=== PATIENT | female | born 1990 | race Caucasian/White ===

== ENCOUNTER 2017-11-21 19:16 | Emergency (ER) | payer OTHER ==
[2017-11-21] MEDS ORDERED: metroNIDAZOLE TAB* 250 MG PO ONE (21:54)
[2017-11-21 22:35] VITALS: BP 128/96
--- NOTE | 2017-11-22 06:07 | ED ---
Maged Mcknight Nikita, scribed for Kirit Sandhu MD on 11/21/17 at 2143 . GI/ HPI - HPI Summary HPI Summary: This patient is a 27 year old F presenting to ED with a chief complaint of pelvic pain since 1 year ago and vaginal discharge with blood since 5 years ago. The CC is described as worsened tonight, shooting and throbbing, previously on one side but is now diffuse, and she can feel them on her clitoris. The discharge is intermittent and is described as with blood, yellow or white. The patient rates the pain 7/10 in severity. Symptoms aggravated by nothing. Symptoms alleviated by nothing (pt has taken Advil to no relief). Patient reports urinary symptoms, nausea, crawling sensations in her nose and R eye, inflammation and erythema of the vaginal area, vaginal and rectal itching. Patient denies vomiting. The pt is a virgin. 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 LMP was 11/01/17. - History of Current Complaint Chief Complaint: EDVaginalBleeding Time Seen by Provider: 11/21/17 21:27 Stated Complaint: PELVIC AND VAGINALPAIN/BLEEDING Hx Obtained From: Patient Onset/Duration: Started Days Ago, Still Present Timing: Constant, Lasting Days Severity: Moderate Current Severity: Moderate Pain Intensity: 7 Location of Pain: Other - pelvic Pain Characteristics: Itching, Other: - irritated, shooting, and throbbing Associated Signs and Symptoms: Positive: Other: - discharge is intermittent and is described as with blood, yellow or white; Patient reports urinary symptoms, nausea, crawling sensations in her nose and R eye, inflammation and erythema of the vaginal area, vaginal and rectal itching. Patient denies vomiting. Additional Signs & Symptoms: Positive: Other: - discharge is intermittent and is described as with blood, yellow or white; Patient reports urinary symptoms, nausea, crawling sensations in her nose and R eye, inflammation and erythema of the vaginal area, vaginal and rectal itching. Patient denies vomiting. Aggravating Factor(s): Nothing Alleviating Factor(s): Nothing - pt has taken advil to no relief - Allergy/Home Medications Allergies/Adverse Reactions: Allergies Allergy/AdvReac Type Severity Reaction Status Date / Time No Known Allergies Allergy Verified 11/21/17 21:27 PMH/Surg Hx/FS Hx/Imm Hx Endocrine/Hematology History: Reports: Other Endocrine/Hematological Disorders - pawan's disease GI History: Reports: Other GI Disorders - pinworms in her stool History: Reports: Other Problems/Disorders - chronic pelvic pain and itching - Immunization History Date of Tetanus Vaccine: utd Date of Influenza Vaccine: utd Infectious Disease History: No Infectious Disease History: Denies: Traveled Outside the [place] in Last 30 Days - Family History Known Family History: Positive: Other Family History: ovarian cysts - Social History Alcohol Use: Rare Substance Use Type: Reports: None Smoking Status (MU): Never Smoked Tobacco Review of Systems Positive: Other - crawling sensations in her nose and R eye Positive: Nausea, Other - rectal itching. Negative: Vomiting Positive: discharge - with blood, yellow, or white discharge, other - urinary symptoms, inflammation and erythema of the vaginal area, vaginal itching All Other Systems Reviewed And Are Negative: Yes Physical Exam - Summary Physical Exam Summary: Appearance: Well appearing, no pain distress Skin: warm, dry, reflects adequate perfusion Head/face: normal Eyes: EOMI, LORELEI ENT: irritation under her nose Neck: supple, non-tender Respiratory: CTA, breath sounds present Cardiovascular: RRR, pulses symmetrical Abdomen: non-tender, soft Bowel: present Musculoskeletal: normal, strength/ROM intact Neuro: normal, sensory motor intact, A&Ox3 Pelvic exam: no hemorrhoids, scant amount of blood from her pelvic exam, no evidence of parasites Psych: No SI/HI. Paranoia with preoccupations with "parasites" in her pelvis. Triage Information Reviewed: Yes Vital Signs On Initial Exam: Initial Vitals Temp Pulse Resp BP Pulse Ox 99 F 78 18 145/91 100 11/21/17 19:28 11/21/17 19:28 11/21/17 19:28 11/21/17 19:28 11/21/17 19:28 Vital Signs Reviewed: Yes Diagnostics - Vital Signs Vital Signs Temp Pulse Resp BP Pulse Ox 11/21/17 19:28 99 F 78 18 145/91 100 - Laboratory Lab Statement: Any lab studies that have been ordered have been reviewed, and results considered in the medical decision making process. GIGU Course/Dx - Course Course Of Treatment: Pt with chronic pain/itching in the vagina/pelvic region since age 9. Has seen multiple specialists. Pt appears to at least have secondary mental health problem. Hasnt seen pain management. Pt refused US here today -- has appt for one on 11/23. Stable, start flagyl. On antiparasitic. D/C to f/u [facility] and her therapist. - Diagnoses Differential Diagnoses - Female: Other - chronic pelvic pain, vaginal discharge , psychogenic parasitosis Provider Diagnoses: Chronic pelvic pain in female, Vaginal discharge, psychogenic parasitosis Discharge - Discharge Plan Condition: Good Disposition: HOME Prescriptions: metroNIDAZOLE [Flagyl 500 MG TAB] 500 mg PO TID #20 tab Patient Education Materials: Pelvic Pain in Women (ED) Referrals: Roshan Ibarra MD [Medical Doctor] - Dieudonne Payne MD [Primary Care Provider] - Shaquille Helms MD [Medical Doctor] - Additional Instructions: Take your medications as discussed. See your OBGYN and ask about Botox and other treatments of chronic pelvic pain. The documentation as recorded by the Maged ortez Nikita accurately reflects the service I personally performed and the decisions made by me, Kirit Sandhu MD.
== END 2017-11-21 22:33 | disposition home or self-care (01) ==
LOC: ED 19:16
DX: R10.2 Pelvic and perineal pain (principal); N89.8 Other specified noninflammatory disorders of vagina; R11.0 Nausea; F06.2 Psychotic disorder with delusions due to known physiological condition
CPT/HCPCS: 87480; 87491; 87510; 87591; 87661; 99282; A9270-GY

== ENCOUNTER 2018-11-23 11:59 | Emergency (ER) | payer OTHER ==
[2018-11-23 12:55] LABS: Hematocrit 42 % (35-47); Hemoglobin 14.1 g/dl (12.0-16.0); Mean Corpuscular HGB Conc 34 g/dl (31-36); Mean Corpuscular Hemoglobin 28 pg (27-31); Mean Corpuscular Volume 83 fL (80-97); Mean Platelet Volume 8.3 fL (7.4-10.4); Platelet Count 313 10^3/ul (150-450); Red Cell Distribution Width 14 % (10.5-15); White Blood Count 4.6 10^3/ul (3.5-10.8)
[2018-11-23 13:23] LABS: Albumin 4.5 g/dL (3.2-5.2); Albumin/Globulin Ratio 1.5 (1-3); BUN/Creatinine Ratio 10.1 (8-20); Calcium 9.7 mg/dL (8.6-10.3); EGFR African American 105.6 (>60); EGFR Non-African American 87.3 (>60); Potassium 4.3 mmol/L (3.5-5.0); Total Bilirubin 0.3 mg/dL (0.2-1.0); Total Protein 7.5 g/dL (6.4-8.9)
[2018-11-23] MEDS ORDERED: NS 0.9% 1000 ML** 1,000 ML IV ONE (13:29)
[2018-11-23] MEDS ORDERED: Metoclopramide IV* 5 MG/ML 2 ML VIAL IV ONE (13:29)
[2018-11-23] MEDS ORDERED: Ketorolac INJ* 30 MG/ML 1 ML VIAL IV PUSH ONE (13:29)
[2018-11-23] MEDS ORDERED: diPHENhydraMINE PO* 50 MG PO ONE (13:30)
--- NOTE | 2018-11-23 13:33 | ED ---
Headache - HPI Summary HPI Summary: This pt is a 28 y/o female presenting to [facility] c/o intermittent headache x5 days and today with floaters. Pt reports 5 days ago she was walking in the cold with her hair damp and her hair froze. She states that day her head pain began. Since then she has had intermittent headache but it became worse yesterday with associated nausea. She describes her headache is located in the back of her head. Pt went to [facility] yesterday and was discharged with Excedrin and Zofran. Today she notes she had floaters and spots in the bright light. Denies fever, chills, neck pain, weakness in UE, vomiting. Currently denies any floaters or spots. She rates her headache 4/10 in severity right now. Pt had a 6 /10 headache earlier but had mild relief after she took Excedrin extended release this morning. Pt is a student. Denies sick contacts or recent traveling. Denies hx of migraines. Denies tobacco, alcohol, and drug use. - History Of Current Complaint Chief Complaint: EDHeadache Stated Complaint: HEADACHE/FLOATERS Hx Obtained From: Patient Hx Last Menstrual Period: [id number] Onset/Duration: Started days ago, Still Present Initially Headache Was: Initial Pain Scale(0-10)= - 6 Currently Pain Is: Current Pain Scale(0-10)= - 4, Moderate Timing: Intermittent, Lasting:, Days Location of Headache: Occipital Aggravating Factor: Nothing Allevating Factors: Nothing Associated Signs And Symptoms: Nausea, Visual Changes - floaters, Other (Noted In Comments) - NEG: fever, chills, neck pain, weakness in UE, vomiting - Allergies/Home Medications Allergies/Adverse Reactions: Allergies Allergy/AdvReac Type Severity Reaction Status Date / Time No Known Allergies Allergy Verified 11/23/18 12:01 PMH/Surg Hx/FS Hx/Imm Hx Endocrine/Hematology History: Reports: Other Endocrine/Hematological Disorders - pawan's disease GI History: Reports: Other GI Disorders - pinworms in her stool History: Reports: Other Problems/Disorders - chronic pelvic pain and itching - Immunization History Date of Tetanus Vaccine: utd Date of Influenza Vaccine: utd Infectious Disease History: No Infectious Disease History: Denies: Traveled Outside the [place] in Last 30 Days - Family History Known Family History: Positive: Other Negative: Cardiac Disease, Hypertension, Diabetes Family History: ovarian cysts - Social History Occupation: Student Alcohol Use: None Substance Use Type: Reports: None Smoking Status (MU): Never Smoked Tobacco Review of Systems Negative: Fever, Chills Eyes: Other - POS: floaters Positive: Nausea. Negative: Vomiting Negative: Other - NEG: neck pain Positive: Headache. Negative: Weakness All Other Systems Reviewed And Are Negative: Yes Physical Exam - Summary Physical Exam Summary: VITAL SIGNS: Reviewed. GENERAL: Patient is a well-developed and nourished female who is lying comfortable in the stretcher. Patient is not in any acute respiratory distress. HEAD AND FACE: Normocephalic EYES: PERRLA, EOMI x 2. EARS: Hearing grossly intact. MOUTH: Oropharynx within normal limits. NECK: Supple, trachea is midline, no adenopathy, no JVD, no carotid bruit. CHEST: Symmetric, no tenderness at palpation LUNGS: Clear to auscultation bilaterally. No wheezing or crackles. CVS: Regular rate and rhythm, S1 and S2 present, no murmurs or gallops appreciated. ABDOMEN: Soft, non-tender. Bowel sounds are normal. No abdominal abnormal pulsations. EXTREMITIES: Full ROM in all major joints, no edema, no cyanosis or clubbing. NEURO: Alert and oriented x 3. No acute neurological deficits. Speech is normal and follows commands. SKIN: Dry and warm GCS: 15 Triage Information Reviewed: Yes Vital Signs On Initial Exam: Initial Vitals Temp Pulse Resp BP Pulse Ox 98.8 F 83 17 134/102 100 11/23/18 12:01 11/23/18 12:01 11/23/18 12:01 11/23/18 12:01 11/23/18 12:01 Vital Signs Reviewed: Yes Diagnostics - Vital Signs Vital Signs Temp Pulse Resp BP Pulse Ox 11/23/18 12:01 98.8 F 83 17 134/102 100 - Laboratory Lab Results: Lab Results 11/23/18 11/23/18 Range/Units 12:47 12:47 WBC 4.6 (3.5-10.8) 10^3/ul RBC 5.00 (4.00-5.40) 10^6/ul Hgb 14.1 (12.0-16.0) g/dl Hct 42 (35-47) % MCV 83 (80-97) fL MCH 28 (27-31) pg MCHC 34 (31-36) g/dl RDW 14 (10.5-15) % Plt Count 313 (150-450) 10^3/ul MPV 8.3 (7.4-10.4) fL ESR Pending Sodium 139 (135-145) mmol/L Potassium 4.3 (3.5-5.0) mmol/L Chloride 106 (101-111) mmol/L Carbon Dioxide 27 (22-32) mmol/L Anion Gap 6 (2-11) mmol/L BUN 8 (6-24) mg/dL Creatinine 0.79 (0.51-0.95) mg/dL Est GFR ( Amer) 105.6 (>60) Est GFR (Non-Af Amer) 87.3 (>60) BUN/Creatinine Ratio 10.1 (8-20) Glucose 79 (70-100) mg/dL Calcium 9.7 (8.6-10.3) mg/dL Total Bilirubin 0.30 (0.2-1.0) mg/dL AST 17 (13-39) U/L ALT 14 (7-52) U/L Alkaline Phosphatase 55 (34-104) U/L Total Protein 7.5 (6.4-8.9) g/dL Albumin 4.5 (3.2-5.2) g/dL Globulin 3.0 (2-4) g/dL Albumin/Globulin Ratio 1.5 (1-3) Result Diagrams: 11/23/18 12:47 11/23/18 12:47 Lab Statement: Any lab studies that have been ordered have been reviewed, and results considered in the medical decision making process. - CT Brain CT CT Interpretation Completed By: Radiologist Summary of CT Findings: IMPRESSION: No evidence of intracranial mass or hemorrhage is noted. Dr. Morel has reviewed this report. Re-Evaluation - Re-Evaluation First Eval Re-Evaluation Time: 15:55 Comment: Pt is still c/o headache. Will order a brain CT. Headache Course/Dx - Course Assessment/Plan: 28-year-old female presents to the emergency department with a headache. Patient has no history of headaches. She denies any neck pain denies , any photophobia, denies any fevers and she has no meningeal signs. Therefore no suspicion for meningitis. Blood work without any significant abnormality. I decided to do a head CT since the patient doesnt have any history of migraine headaches. Head CT impression: No acute intracranial pathology. In the ED course the patient was given Benadryl, Toradol, Reglan and IV fluids. After these medications the patients symptoms improved. At this point the patient will be discharged home with follow-up from her primary care physician. Patient is hemodynamically stable, alert oriented 3. At this point I discussed all the findings and test results with the patient. She was instructed to return to the emergency room immediately if any of the symptoms return or worsens. She understands and agrees. Neurological exam before discharge: Patient is alert and oriented x 3. No acute neurological deficits. Patient vital signs are stable. Patient is to follow up with PCP in the next 2 3 days. They understand and agree. Plan of care was discussed with the patient and patient understands and agrees with the plan of care. All questions were answered at patient satisfaction. There were no further complaints or concerns. - Diagnoses Differential Diagnosis/HQI/PQRI: CVA, TIA, Migraine, Tension Headache Provider Diagnoses: Headache Discharge - Sign-Out/Discharge Documenting (check all that apply): Patient Departure - Discharge home Patient Received Moderate/Deep Sedation with Procedure: No - Discharge Plan Condition: Stable Disposition: HOME Patient Education Materials: General Headache (ED) Referrals: Dieudonne Payne MD [Primary Care Provider] - Additional Instructions: PLEASE FOLLOW UP WITH YOUR PRIMARY CARE PROVIDER IN 2-3 DAYS. RETURN TO THE ED FOR ANY WORSENING OR NEW SYMPTOMS. - Billing Disposition and Condition Condition: STABLE Disposition: Home - Attestation Statements Document Initiated by Jesse: Yes Documenting Scribe: Anupama Roque Provider For Whom Jesse is Documenting (Include Credential): José Miguel Morel MD Scribe Attestation: Anupama Mcknight scribed for José Miguel Morel MD on 11/24/18 at 1013. Scribe Documentation Reviewed: Yes Provider Attestation: The documentation as recorded by the Anupama ortez accurately reflects the service I personally performed and the decisions made by me, José Miguel Morel MD Status of Scribe Document: Viewed
[2018-11-23 14:59] LABS: T4, Total 10.91 mcg/dL (6.09-12.23)
[2018-11-23 15:03] LABS: TSH (Thyroid Stimulating Horm) 1.79 mcIU/mL (0.34-5.60)
[2018-11-23 17:02] VITALS: BP 110/74
[2018-11-23 19:15] LABS: Erythrocyte Sed Rate 5 mm/Hr (0-20)
== END 2018-11-23 17:21 | disposition home or self-care (01) ==
LOC: ED 11:59
DX: R51 Headache (principal); H43.399 Other vitreous opacities, unspecified eye; R11.0 Nausea
CPT/HCPCS: 36415; 70450; 80053; 84436; 84443; 85027; 85652; 96361; 96374; 96375; 99282; A9270-GY; J1885; J2765

== ENCOUNTER 2019-03-21 16:26 | Emergency (ER) | payer OTHER ==
--- OUTSIDE RECORDS SUMMARY | 2019-03-21 16:31 | XMS REPORT | Continuity of Care Document ---
:1990 External Reference #:[id number] Author Name Asad Houser M.D. Address [address] [place] [address] Care Team Providers Name Role Phone Rica Grullon, Asad Care Team Information Financial Services Intern Unavailable Rica Grullon, Asad Primary Care Physician Unavailable Payers Date Identification Numbers Payment Provider Subscriber Policy Number: [id number] [facility] Claims Admin Thuy Aguilera Group Name: Student Insurance [address] PayID: [id number] [place] [address] Family History Date Family Member(s) Observation Comments General Diabetes General Thyroid Disease Social History Type Date Description Comments Sex Unknown Occupation PHD Student [employer] Tobacco Use Start: Unknown Never Smoked Cigarettes Tobacco Use Start: Unknown Never Smoked Cigars Tobacco Use Start: Unknown Never Smoked A Pipe Smokeless Tobacco Never Used Smokeless Tobacco ETOH Use Denies alcohol use Tobacco Use Start: Unknown Patient has never smoked Smoking Status Reviewed: 03/07/19 Patient has never smoked Allergies, Adverse Reactions, Alerts Description No Known Drug Allergies Medications Active Medications SIG Qnty Indications Ordering Provider Date Cevimeline HCL 1 by mouth 270caps K11.7 Asad Stokes 12/28/2018 30mg three times a Mitchel Houser Capsules day Synthroid daily Unknown 125mcg Tablets Wellbutrin SR 1 tab daily Unknown 100mg Tablets ER 12HR Topiramate po qd Rica Grullon, 200mg Asad Tablets History Medications Amitriptyline HCL 1 by mouth at bed Unknown - 03/08/2019 10mg Tablets time Amlodipine Besylate 1 tab daily Unknown - 03/08/2019 2.5mg Tablets Lamictal 1 by mouth at at Unknown - 03/08/2019 100mg Tablets bedtime Lorazepam Unknown - 03/08/2019 0.5mg Tablets Lamotrigine Unknown - 03/08/2019 25mg Tablets Vital Signs Date Vital Result Comment 03/08/2019 3:03pm Weight 147.00 lb Weight 66.679 kg Height 65 inches 5'5" Height in cm's 165.1 cm BMI (Body Mass Index) 24.5 kg/m2 12/28/2018 10:54am Weight 147.00 lb Weight 66.679 kg Height 65 inches 5'5" Height in cm's 165.1 cm BMI (Body Mass Index) 24.5 kg/m2 Results Test Date Facility Test Result H/L Range Note Laboratory test 12/28/2018 [facility] Fungus Smear SEE RESULT 1 finding c/o [facility] [place] [address] [phone] Laboratory test 12/28/2018 [facility] Fungus Smear SEE RESULT 2 finding c/o [facility] [place] [address] [phone] Laboratory test 12/28/2018 [facility] Fungus Smear SEE RESULT 3 finding c/o [facility] [place], [place] [id number] [phone] Laboratory test 12/28/2018 [facility] Fungus Smear SEE RESULT 4 finding c/o Department of Laboratories [place], [place] [address] [phone] 1 SEE RESULT BELOW Name: THUY AGUILERA : [address]: Asad Houser MD Acct: [id number] Unit: [id number] AGE: 28 Location: [facility] Re12/28/18 SEX: F Status: REG REF SPEC: [id number] RODRÍGUEZ: 12/28/18-[address] [facility] [address]: Asad Houser MD REQ: [id number] RECD: 12/28/18153 STATUS: RES _ SOURCE: THROAT SPDESC: ORDERED: Fungal Smear, Fungal - Other COMMENTS: [id number] Procedure Result Reported Site Fungal Smear Final 12/28/18- 1641 ML Fungal Findings Negative Fungal Cult - Other Sources Preliminary 01/03/19- 1440 ML Fungal Culture No Growth of Mycotic Organisms 1 week * ML - Main Lab . END OF REPORT DEPARTMENT OF PATHOLOGY, [address] [place] [address] Flakito Moon M.D. Director [facility] # [id number] 2 SEE RESULT BELOW Name: THUY AGUILERA : [address]: Asad Houser MD Acct: [id number] Unit: [id number] AGE: 28 Location: [facility] Re12/28/18 SEX: F Status: REG REF SPEC: [id number] RODRÍGUEZ: 12/28/18-[address] [facility] [address]: Asad Houser MD REQ: [id number] RECD: 12/28/18 STATUS: RES _ SOURCE: THROAT SPDESC: ORDERED: Fungal Smear, Fungal - Other COMMENTS: [id number] Procedure Result Reported Site Fungal Smear Final 12/28/18- 1641 ML Fungal Findings Negative Fungal Cult - Other Sources Preliminary 01/10/19- 1411 ML Fungal Culture No Growth of Mycotic Organisms 2 weeks * ML - Main Lab . END OF REPORT DEPARTMENT OF PATHOLOGY, [address] [place] [address] Flakito Moon M.D. Director [facility] # [id number] 3 SEE RESULT BELOW Name: THUY AGUILERA : [address]: Asad Houser MD Acct: [id number] Unit: [id number] AGE: 28 Location: [facility] Re12/28/18 SEX: F Status: REG REF SPEC: [id number] RODRÍGUEZ: 12/28/18-[address] [facility] [address]: Asad Houser MD REQ: [id number] RECD: 12/28/18 STATUS: RES _ SOURCE: THROAT SPDESC: ORDERED: Fungal Smear, Fungal - Other COMMENTS: [id number] Procedure Result Reported Site Fungal Smear Final 12/28/18- 1641 ML Fungal Findings Negative Fungal Cult - Other Sources Preliminary 01/17/19- 1450 ML Fungal Culture No Growth of Mycotic Organisms 3 weeks * ML - Main Lab . END OF REPORT DEPARTMENT OF PATHOLOGY, [address] [place] [address] Flakito Moon M.D. Director [facility] # [id number] 4 SEE RESULT BELOW Name: THUY AGUILERA : [address]: Asad Houser MD Acct: [id number] Unit: [id number] AGE: 28 Location: [facility] Re12/28/18 SEX: F Status: REG REF SPEC: [id number] RODRÍGUEZ: 12/28/18-[address]: Asad Houser MD REQ: [id number] RECD: 12/28/18153 STATUS: COMP _ SOURCE: THROAT SPDESC: ORDERED: Fungal Smear, Fungal - Other COMMENTS: [id number] Procedure Result Reported Site Fungal Smear Final 12/28/18- 1641 ML Fungal Findings Negative Fungal Cult - Other Sources Final 01/24/19- 1341 ML Fungal Culture No Growth of Mycotic Organisms 4 weeks * ML - Main Lab . END OF REPORT DEPARTMENT OF PATHOLOGY, [address] [place] [address] Flakito Moon M.D. 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 But it has not changed her sore throat, hoarseness and she has a lumpy mass over the left angle of the mandible. She thinks this is getting biggerand at times she feels she is numb there. Her nasolaryngoscopy is normal. I also palpate something over the mandible in this area. I don't know what it is. It is possible this is ectopic salivary tissue. I have also removed lipoma's from this area. Something like a liposarcoma can't be ruled out. Myrecommendation is for a soft tissue MRI.K11.7 Disturbances of salivary hrijbpkcyA77.1 Localized swelling, mass and lump, neckR49.0 Dysphonia
--- OUTSIDE RECORDS SUMMARY | 2019-03-21 16:31 | XMS REPORT | Continuity of Care Document ---
:1990 External Reference #:[id number] Author Name Afsaneh Melendez Care Team Providers Name Role Phone [facility] Primary Care Physician Unavailable Payers Date Identification Numbers Payment Provider Subscriber Policy Number: [id number] [employer] Student Ins Thuy Lema PayID: [id number] [id number] [place] [address] Problems Active Problems Provider Date Multiple joint pain Jonnathan Chua M.D. Onset: 07/31/2014 Chronic fatigue syndrome Jonnathan Chua M.D. Onset: 07/31/2014 Hand joint pain Jonnathan Chua M.D. Onset: 07/31/2014 Myalgia & Myositis Unspecified Jonnathan Chua M.D. Onset: 07/31/2014 Skin sensation disturbance Tika Mirza M.D. Onset: 02/13/2015 Joint pain Asad Strauss M.D. Onset: 01/08/2016 Resolved Problems Rheumatoid arthritis Jonnathan Chua M.D. Onset: 09/26/2014 Resolved: 10/14/2018 Family History Date Family Member(s) Observation Comments General mother has Ra General Heart Disease both sides of family Father 63 Father Diabetes Mother 60 First Brother 26 healthy Social History Type Date Description Comments Sex Unknown Marital Status Single Lives With Alone Tobacco Use Start: Unknown Never Smoked Cigarettes Smoking Status Reviewed: 03/17/19 Never Smoked Cigarettes ETOH Use Denies alcohol use Tobacco Use Start: Unknown Patient has never smoked Exercise Type/Frequency Exercises regularly Allergies, Adverse Reactions, Alerts Description No Known Drug Allergies Medications Active Medications SIG Qnty Indications Ordering Provider Date Plaquenil Take one by mouth 60tabs Asad Strauss, 03/09/2019 200mg Tablets every other day M.D. for 2 week then 1 tab by mouth every day Topiramate take 1 tablet by 60tabs R51 Hemant Short, 02/08/2019 100mg mouth every M.DRachna Tablets morning and 1 tab at night Naratriptan HCL take one tab by 9tabs Hemant Short, 02/08/2019 2.5mg mouth twice a day M.D. Tablets as needed for severe migraines, max 2 days/week Synthroid 1 by mouth every Unknown 125mcg day Tablets Bupropion HCL take 1 tablet by Unknown 100mg mouth once daily Tablets Cevimeline HCL 1 cap three times Unknown 30mg a day Capsules Magnesium take one Unknown 500mg Tablets capsule/tablet daily by mouth Womens Daily two pills daily, Unknown Formula/Folic one at breakfast, Acid/Calcium/Iron one at dinner Tablets History Medications Lorazepam take 1 tab by 2tatay Hollins 01/13/2019 - 0.5mg Tablets mouth one hour Mitchel Short 02/07/2019 prior to the procedure and second tab 30 minutes to the procedure if needed. mdd 2 Lamictal 1 by mouth every 30tabs Hemant Hollins 01/05/2019 - 25mg Tablets day Mitchel Short 02/07/2019 Topiramate take 4 tabs 120tabs R51 Hemant Hollins 01/05/2019 - 25mg Tablets daily Mitchel Short 02/08/2019 Lorazepam take 1 tab po 2tabs Hemant Hollins 12/27/2018 - 0.5mg Tablets one hour prior Mitchel Short 01/04/2019 to the procedure and second tab 30 minutes to the procedure. mdd 2 Amitriptyline HCL take 1 tablets 60tabs R51 Hemant Hollins 12/22/2018 - 10mg every night at Mitchel Short 02/15/2019 Tablets bedtime for 7 days and then discontinue. Xanax Take 1 or 2 up 2tabs Asad Strauss, 12/16/2018 - 0.25mg Tablets to 20 minutes M.DRachna 12/21/2018 prior the MRI as needed for anxiety Medrol take as directed 21units Asad Strauss, 12/07/2018 - 4mg TBPK until finished M.D. 12/21/2018 as a medrol dose pack Amlodipine Besylate take one 90tabs I73.00 Asad Strauss, 11/25/2018 - 2.5mg capsule/tablet M.D. 12/29/2018 Tablets daily by mouth Plaquenil take 2 by mouth 180tabs Asad Strauss, 10/14/2018 - 200mg Tablets daily ongoing M.D. 12/02/2018 Lidoderm 1 apply to 30units M54.2 Asad Strauss, 01/08/2016 - 5% Patches affected area 12 M.D. 10/14/2018 hours on, 12 hours off Methotrexate 3 by mouth on 15tabs 714.0 Jonnathan Chua, 09/26/2014 - 2.5mg fridays M.D. 02/12/2015 Tablets Folic Acid 1 by mouth every 30tabs Jonnathan Chua, 09/26/2014 - 1mg Tablets day M.D. 02/12/2015 Naproxen 1 by mouth every 719.44 Jonnathandenny Chua, 08/04/2014 - 500mg Tablets 12 hours M.D. 02/12/[address] 1 by mouth twice 60tabs 719.44 Jonnathan Harshil, 07/31/2014 - 500mg Tablets a day M.D. 08/04/2014 Indomethacin Scooby, - 50mg [facility], [facility] 01/04/2019 Capsules Cyclobenzaprine HCL Scooby, - 5mg [facility], [facility] 01/04/2019 Tablets Indomethacin 1 cap by mouth Unknown - 25mg two times only 12/21/2018 Capsules if needed for pain Lamictal 25 mg/day Unknown - 100mg Tablets 01/05/2019 Lamictal 1 by mouth every Unknown - 25mg Tablets day 12/22/2018 Nabumetone Unknown - 500mg Tablets 11/25/2018 Fluoxetine HCL 1 by mouth every Unknown - 40mg day 10/14/2018 Capsules Liothyronine Sodium 10 mcg by mouth Unknown - 5mcg bid 10/14/2018 Tablets Vitamin D 1 tab each day Unknown - (Cholecalciferol) by mouth 10/14/2018 Tablets Vitamin B-12 1 by mouth every Unknown - 1000mcg day 10/14/2018 Tablets Multivitamins 1 by mouth every Unknown - Capsules day 10/14/2018 Probiotic 1 by mouth every Unknown - Capsules day 10/14/2018 Synthroid 1 by mouth every 90tabs Unknown - 50mcg Tablets day 02/12/2015 Vital Signs Date Vital Result Comment 03/17/2019 3:28pm Height 64.25 inches 5'4.25" Weight 130.00 lb Heart Rate 108 /min BP Systolic 115 mmHg BP Diastolic 81 mmHg O2 % BldC Oximetry 99 % BMI (Body Mass Index) 22.1 kg/m2 03/09/2019 2:49pm Height 64.25 inches 5'4.25" Weight 130.25 lb Heart Rate 101 /min BP Systolic Sitting 120 mmHg BP Diastolic Sitting 78 mmHg Pain Level 3 O2 % BldC Oximetry 98 % BMI (Body Mass Index) 22.2 kg/m2 02/08/2019 11:03am Height 64.25 inches 5'4.25" Weight 137.00 lb Heart Rate 104 /min BP Systolic 124 mmHg BP Diastolic 70 mmHg BMI (Body Mass Index) 23.3 kg/m2 01/05/2019 11:47am Height 64.25 inches 5'4.25" Weight 142.00 lb Heart Rate 60 /min BP Systolic 110 mmHg BP Diastolic 68 mmHg BMI (Body Mass Index) 24.2 kg/m2 12/29/2018 4:16pm Height 64.25 inches 5'4.25" Heart Rate 106 /min BP Systolic Sitting 115 mmHg BP Diastolic Sitting 83 mmHg Respiratory Rate 14 /min 12/22/2018 8:33am Height 64.25 inches 5'4.25" Weight 143.00 lb Heart Rate 88 /min BP Systolic 110 mmHg BP Diastolic 76 mmHg BMI (Body Mass Index) 24.4 kg/m2 12/07/2018 4:33pm Height 64.25 inches 5'4.25" Heart Rate 103 /min BP Systolic Sitting 124 mmHg BP Diastolic Sitting 74 mmHg Respiratory Rate 14 /min Pain Level 6 11/25/2018 1:45pm Height 64.25 inches 5'4.25" Weight 146.12 lb Heart Rate 87 /min BP Systolic 120 mmHg BP Diastolic 72 mmHg Pain Level 3 O2 % BldC Oximetry 98 % BMI (Body Mass Index) 24.9 kg/m2 10/14/2018 9:26am Height 64.25 inches 5'4.25" Weight 148.00 lb Heart Rate 82 /min BP Systolic Sitting 121 mmHg BP Diastolic Sitting 76 mmHg Respiratory Rate 14 /min Pain Level 3 BMI (Body Mass Index) 25.2 kg/m2 03/13/2016 8:46am Height 64.25 inches 5'4.25" Weight 124.00 lb Heart Rate 72 /min BP Systolic Sitting 118 mmHg BP Diastolic Sitting 70 mmHg Body Temperature 97.8 F Pain Level 2 BMI (Body Mass Index) 21.1 kg/m2 01/08/2016 3:04pm Height 64.25 inches 5'4.25" Weight 122.00 lb Heart Rate 78 /min BP Systolic Sitting 110 mmHg BP Diastolic Sitting 76 mmHg Respiratory Rate 14 /min Pain Level 1 BMI (Body Mass Index) 20.8 kg/m2 02/13/2015 9:19am Height 64.25 inches 5'4.25" Weight 136.00 lb Heart Rate 68 /min BP Systolic Sitting 128 mmHg BP Diastolic Sitting 72 mmHg Respiratory Rate 16 /min BMI (Body Mass Index) 23.2 kg/m2 09/26/2014 11:22am Height 64.25 inches 5'4.25" Weight 136.00 lb Heart Rate 70 /min BP Systolic Sitting 110 mmHg BP Diastolic Sitting 70 mmHg Pain Level 2 BMI (Body Mass Index) 23.2 kg/m2 07/31/2014 12:54pm Height 64.25 inches 5'4.25" Weight 132.50 lb Heart Rate 66 /min BP Systolic Sitting 102 mmHg BP Diastolic Sitting 76 mmHg Pain Level 3 BMI (Body Mass Index) 22.6 kg/m2 Results Test Date Facility Test Result H/L Range Note Laboratory test 03/17/2019 [facility] <pending> finding [address] ast: [place] [address] Dna [phone] Encounters Type Date Location Provider Dx Diagnosis Office Visit 03/09/2019 Rheumatology Asad Strauss M35.9 Systemic 2:40p [facility] involvement of connective tissue, unspecified Z79.899 Other prison (current) drug therapy R51 Headache R68.2 Dry mouth, unspecified Office Visit 02/17/2019 9:00a [facility] Sasha Archibald N.P. L29.2 Pruritus vulvae [facility] R10.2 Pelvic and perineal pain M79.7 Fibromyalgia R53.82 Chronic fatigue, unspecified Office Visit 02/08/2019 [facility] Jefferson Nugent, G43.019 Migraine w/ o 11:00a [facility] LANGUAGE ASST aura, intractable, without status migrainosus Office Visit 01/05/2019 [facility] Nugent, R51 Headache 11:30a Clinic LANGUAGE [facility]ST M35.9 Systemic involvement of connective tissue, unspecified R20.0 Anesthesia of skin E06.3 Autoimmune thyroiditis Office Visit 12/29/2018 4:00p Rheumatology Asad M35.9 Systemic [facility] Stra[facility] M.D. involvement of connective tissue, unspecified I73.00 Raynaud's syndrome without gangrene R51 Headache Office Visit 12/22/2018 8:30a [facility] Hemant Hollins G44.52 New daily [facility] M.D. persistent headache (NDPH) M54.2 Cervicalgia I73.00 Raynaud's syndrome without gangrene M35.9 Systemic involvement of connective tissue, unspecified Office Visit 12/07/2018 Rheumatology Asad G43.001 Migraine w/o aura, 4:00p [facility] M.D. not intractable, with status migrainosus M35.9 Systemic involvement of connective tissue, unspecified Z79.899 Other terminal computer operator (current) drug therapy I73.00 Raynaud's syndrome without gangrene Office Visit 11/25/2018 1:40p Rheumatology Asad M35.Bonnie Systemic [facility] M.D. involvement of connective tissue, unspecified Z79.899 Other terminal computer operator (current) drug therapy I73.00 Raynaud's syndrome without gangrene K11.20 Sialoadenitis, unspecified Office Visit 10/14/2018 9:20a Rheumatology Asad M35.9 Systemic [facility] M.D. involvement of connective tissue, unspecified Z79.899 Other prison (current) drug therapy I73.00 Raynaud's syndrome without gangrene E06.9 Thyroiditis, unspecified Office Visit 03/13/2016 8:40a Rheumatology Services Eyal Aleman79.1 Myalgia Of [facility].Selin M54.2 Cervicalgia R76.0 Raised antibody titer Office Visit 01/08/2016 3:20p Rheumatology Services Eyal Aleman79.1 Myalgia Of [facility] Birch.Selin M25.50 Pain in unspecified joint M79.643 Pain in unspecified hand R20.8 Other disturbances of skin sensation M54.2 Cervicalgia L30.8 Other specified dermatitis M06.4 Inflammatory polyarthropathy Office Visit 02/13/2015 [facility] Tika Zavala 782.0 Skin Sensation 9:00a [facility] M.D. Disturbance Office Visit 09/26/2014 Rheumatology Jonnathan Chua, 729.1 Myalgia & 11:20a [facility] Myositis Unspec 714.0 Rheumatoid Arthritis Office Visit 07/31/2014 1:00p Rheumatology Jonnathan Chua, 719.49 Pain Joint [facility] Multiple Sites 780.71 Chronic Fatigue Syndrome 729.1 Myalgia & Myositis Unspec 719.44 Pain Joint Hand Plan of Treatment Future Appointment(s):04/06/2019 9:00 am - Sasha Archibald N.P. at [facility]05/04/2019 9:40 am - Asad Strauss M.D. at [facility]04/12/2019 1:30 pm - Jefferson Nugent NP at [facility]03/17/2019 - Sasha Archibald N.P.N76.0 Acute vaginitis
--- OUTSIDE RECORDS SUMMARY | 2019-03-21 16:31 | XMS REPORT | Continuity of Care Document ---
:1990 External Reference #:[id number] Author Name Liseth Gannno Care Team Providers Name Role Phone [facility] Primary Care Physician Unavailable Payers Date Identification Numbers Payment Provider Subscriber Policy Number: [id number] [employer] Student Ins Thuy Lema PayID: [id number] [address] [place] [address] Problems Active Problems Provider Date Multiple joint [...] Unknown Never Smoked Cigarettes Smoking Status Reviewed: 03/09/19 Never Smoked Cigarettes ETOH Use Denies alcohol [...] R51 Hemant Short, 02/08/2019 100mg mouth every M.D. Tablets morning and 1 tab at night [...] Unknown 500mg Tablets capsule/tablet daily by mouth History Medications Lorazepam take 1 tab by 2tabs Hemant Hollins 01/13/2019 - 0.5mg Tablets mouth one hour Mitchel Short 02/07/2019 prior to the procedure and second tab 30 minutes to the procedure if needed. mdd 2 Topiramate take 4 tabs 120tabs R51 Hemant Hollins 01/05/2019 - 25mg Tablets daily Mitchel Short 02/08/2019 Lamictal 1 by mouth every 30tabs Hemant Hollins 01/05/2019 - 25mg Tablets day Mitchel Short 02/07/2019 Lorazepam take 1 tab po 2tabs Hemant [...] Take 1 or 2 up 2tabs Asad Strauss 12/16/2018 - 0.25mg Tablets to 20 minutes M.DRachna 12/21/2018 prior the MRI as needed for anxiety Medrol take as directed 21units Asad Strauss, 12/07/2018 - 4mg TBPK until finished M.D. 12/21/2018 as a medrol dose pack Amlodipine Besylate take one 90tabs I73.00 Asad Strauss, 11/25/2018 - 2.5mg capsule/tablet M.D. 12/29/2018 Tablets daily by mouth Plaquenil take 2 by mouth 180tabs Asad Diasr, 10/14/2018 - 200mg Tablets daily ongoing M.D. 12/02/2018 Lidoderm 1 apply to 30units M54.2 Asad Strauss, 01/08/2016 - 5% Patches affected area 12 M.D. 10/14/2018 hours on, 12 hours off Folic Acid 1 by mouth every 30tabs Jonnathan Chua, 09/26/2014 - 1mg Tablets day M.D. 02/12/2015 Methotrexate 3 by mouth on 15tabs 714.0 Jonnathan Chua, 09/26/2014 - 2.5mg fridays M.D. 02/12/2015 Tablets Naproxen 1 by mouth every 719.44 Jonnathan Chua, 08/04/2014 - 500mg Tablets 12 hours M.D. 02/12/[address] 1 by mouth twice 60tabs 719.44 Jonnathan Chua, 07/31/2014 - 500mg Tablets a day M.D. 08/04/2014 Synthroid 1 by mouth every 90tabs Unknown - 50mcg Tablets day 02/12/2015 Probiotic 1 by mouth every Unknown - Capsules day 10/14/2018 Multivitamins 1 by mouth every Unknown - Capsules day 10/14/2018 Vitamin B-12 1 by mouth every Unknown - 1000mcg day 10/14/2018 Tablets Vitamin D 1 tab each day Unknown - (Cholecalciferol) by mouth 10/14/2018 Tablets Liothyronine Sodium 10 mcg by mouth Unknown - 5mcg bid 10/14/2018 Tablets Fluoxetine HCL 1 by mouth every Unknown - 40mg day 10/14/2018 Capsules Nabumetone Unknown - 500mg Tablets 11/25/2018 Lamictal 1 by mouth every Unknown - 25mg Tablets day 12/22/2018 Lamictal 25 mg/day Unknown - 100mg Tablets 01/05/2019 Indomethacin 1 cap by mouth Unknown - 25mg two times only 12/21/2018 Capsules if needed for pain Cyclobenzaprine HCL Scooby, - 5mg [facility], [facility] 01/04/2019 Tablets Indomethacin Scooby, - 50mg [facility], [facility] 01/04/2019 Capsules Vital Signs Date Vital Result Comment 03/09/2019 2:49pm Height 64.25 inches 5'4.25" Weight [...] 3 BMI (Body Mass Index) 22.6 kg/m2 Encounters Type Date Location Provider Dx Diagnosis Office Visit 02/17/2019 [facility] Sasha Archibald, N.P. L29.2 Pruritus vulvae 9:00a [facility] R10.2 Pelvic and perineal pain M79.7 Fibromyalgia R53.82 Chronic fatigue, unspecified Office Visit 02/08/2019 [place] [facility] Jefferson Nugent, G43.019 Migraine w/ o 11:00a [facility] CHEMISTRY ASSOCIATE aura, intractable, without status migrainosus Office Visit 01/05/2019 [facility] Nugent, R51 Headache 11:30a Clinic CHEMISTRY ASSOCIATE M35.9 Systemic involvement of connective tissue, unspecified R20.0 Anesthesia of skin E06.3 Autoimmune thyroiditis Office Visit 12/29/2018 4:00p Rheumatology Asad M35.9 Systemic [facility] Mitchel Strauss involvement of connective tissue, unspecified I73.00 Raynaud's syndrome without gangrene R51 Headache Office Visit 12/22/2018 8:30a [place] [facility] Hemant Hollins G44.52 New daily [facility] Short M.D. persistent headache (NDPH) M54.2 Cervicalgia I73.00 Raynaud's syndrome without gangrene M35.9 Systemic involvement of connective tissue, unspecified Office Visit 12/07/2018 Rheumatology Asad G43.001 Migraine w/o aura, 4:00p [facility] Strauss M.D. not intractable, with status migrainosus M35.9 Systemic involvement of connective tissue, unspecified Z79.899 Other longterm (current) drug therapy I73.00 Raynaud's syndrome without gangrene Office Visit 11/25/2018 1:40p Rheumatology Asad M35.9 Systemic [facility] Strauss M.D. involvement of connective tissue, unspecified Z79.899 Other intermodal owner operator truck driver (current) drug therapy I73.00 Raynaud's syndrome without gangrene K11.20 Sialoadenitis, unspecified Office Visit 10/14/2018 9:20a Rheumatology Asad M35.9 Systemic [facility] Strauss M.D. involvement of connective tissue, unspecified Z79.899 Other longterm (current) drug therapy I73.00 Raynaud's syndrome without gangrene E06.9 Thyroiditis, unspecified Office Visit 03/13/2016 8:40a Rheumatology Services Eyal Aleman79.1 Myalgia Of [facility] Birch.Selin M54.2 Cervicalgia R76.0 Raised antibody titer Office Visit 01/08/2016 3:20p Rheumatology Services Migel Aleman.1 Myalgia Of [facility]ay M.DRachna M25.50 Pain in unspecified joint M79.643 Pain in unspecified hand R20.8 Other disturbances of skin sensation M54.2 Cervicalgia L30.8 Other specified dermatitis M06.4 Inflammatory polyarthropathy Office Visit 02/13/2015 [place] 782.0 Skin Sensation 9:00a [facility] Mirza M.D. Disturbance Office Visit 09/26/2014 Rheumatology Jonnathan Chua, 729.1 Myalgia & 11:20a [facility] Myositis Unspec 714.0 Rheumatoid Arthritis Office Visit 07/31/2014 1:00p Rheumatology Jonnathan Chua, 719.49 Pain Joint [facility] Mitchel Multiple Sites 780.71 Chronic Fatigue Syndrome 729.1 Myalgia & Myositis Unspec 719.44 Pain Joint Hand Plan of Treatment Future Appointment(s):05/04/2019 9:40 am - Asad Strauss M.D. at [facility]03/17/2019 3:00 pm - Sasha Archibald N.P. at [facility]04/12/2019 1:30 pm - Jefferson Nugent NP at [place] [facility]02/08/2019 - Jefferson Nugent NPG43.019 Migraine w/o aura, intractable, without status migrainosus
[2019-03-21 16:38] VITALS: BP 114/81
--- NOTE | 2019-03-21 16:45 | UC ---
Abdominal Pain Female HPI - HPI Summary HPI Summary: 28 yo female presents with pelvic pain. She tells me that she has a many year history of chronic pelvic pain and has had many work ups done with no answer. Today, she says that on 03/11 she began to feel generally fatigued and had abdominal cramping. On 03/12 her symptoms worsened and she got her period. On she had her physical therapy appointment for pelvic floor exercises to treat her pelvic pain - this did not help her symptoms. On 03/17 she saw her OBGYN for this and tells me that culture swabs were done for infection and were all negative. She was told that her discomfort was likely due to her period and if it persisted after her period ends to be rechecked. She also had a "white count " done through [facility] on 03/17 and was told it was normal. Her symptoms continued. On 03/19 her period ended. Her symptoms have continued into today, prompting her visit to . She has been resting and applying a heating pack to her lower abdomen with little relief. She is not sexually active and denies risk of STDs or . She also has a history of "bladder problems" and consitetntly has pain and discomfort with urination and her bladder - not increased recently. She is eating and drinking as normal. Does feel slightly nauseous. Denies fever , chills, SOB, chest pain, flank pain, vaginal discharge/itching/lesions. - History of Current Complaint Chief Complaint: UCAbdominalPain Stated Complaint: ABDOMINAL PAIN Time Seen by Provider: 03/21/19 16:43 Hx Obtained From: Patient Hx Last Menstrual Period: 03/20/19 Onset/Duration: Gradual Onset Severity Initially: Moderate Severity Currently: Moderate Pain Intensity: 7 Pain Scale Used: 0-10 Numeric Allergies/Adverse Reactions: Allergies Allergy/AdvReac Type Severity Reaction Status Date / Time No Known Allergies Allergy Verified 03/21/19 16:38 Home Medications: Home Medications Ascorbic Acid [Vitamin C] 1 tab PO DAILY 03/21/19 [History Confirmed 03/21/19] Cevimeline HCl 1 tab PO TID 03/21/19 [History Confirmed 03/21/19] Ferrous Gluconate [Iron] 1 tab PO DAILY 03/21/19 [History Confirmed 03/21/19] Magnesium Oxide [Magnesium] 250 mg PO DAILY 03/21/19 [History Confirmed 03/21/19 ] Topiramate TAB(*) [Topamax 100 mg tab] 1 tab PO BID 03/21/19 [History Confirmed 03/21/19] Vitamin B Complex [Super B-50 Complex] 1 tab PO DAILY 03/21/19 [History Confirmed 03/21/19] PMH/Surg Hx/FS Hx/Imm Hx - Additional Past Medical History Additional PMH: Migraine Chronic pelvic pain - Surgical History Surgical History: Yes Surgery Procedure, Year, and Place: TONSILLECTOMY; - Family History Known Family History: Positive: Other Negative: Cardiac Disease, Hypertension, Diabetes Family History: ovarian cysts - Social History Lives: With Family Alcohol Use: None Substance Use Type: None Smoking Status (MU): Never Smoked Tobacco Review of Systems All Other Systems Reviewed And Are Negative: Yes Constitutional: Positive: Negative Skin: Positive: Negative Respiratory: Positive: Negative Cardiovascular: Positive: Negative Gastrointestinal: Positive: Abdominal Pain, Nausea Genitourinary: Positive: Negative Neurovascular: Positive: Negative Neurological: Positive: Negative Psychological: Positive: Negative Physical Exam - Summary Physical Exam Summary: GENERAL: NAD. WDWN. No pain distress. SKIN: No rashes, sores, lesions, or open wounds. NECK: Supple. Nontender. No lymphadenopathy. CHEST: CTAB. No r/r/w. No accessory muscle use. Breathing comfortably and in no distress. CV: RRR. Without m/r/g. Pulses intact. Cap refill <2seconds ABDOMEN: Mild TTP B/L pelvis overlying area of ovaries. Soft. No distention or guarding. No CVA tenderness. Bowel sounds present NEURO: Alert. PSYCH: Age appropriate behavior. Triage Information Reviewed: Yes Vital Signs: Initial Vital Signs Temp 99.5 F 03/21/19 16:33 Pulse 54 03/21/19 16:33 Resp 18 03/21/19 16:33 BP 114/81 03/21/19 16:33 Pulse Ox 100 03/21/19 16:33 Laboratory Tests 03/21/19 03/21/19 16:53 16:55 POC Urine Color Yellow POC Urine Clarity Clear POC Urine pH 7.0 POC Ur Specif [place] 1.015 POC Urine Protein Negative POC Ur Glucose (UA) Negative POC Urine Ketones Negative POC Urine Blood Trace-intact A POC Urine Nitrite Negative POC Urine Bilirubin Negative POC Urine Urobilinogen 0.2 POC U Leukocyte Esteras Trace A POC Ur Test Negative Vital Signs Reviewed: Yes Abd Pain Female Course/Dx - Course Course Of Treatment: UA with trace leuks - she has chronic bladder/urinary problems at baseline and states this is no different recently. Transvaginal ultrasound: IMPRESSION: SLIGHTLY PROMINENT LEFT OVARIAN CYST, OTHERWISE UNREMARKABLE STUDY. Pt declined a pelvic exam today as she just had one a few days ago at her OBGYN and had testing there. At this time I do not believe the simple left ovarian cyst is the cause of her discomfort. I suspect her symptoms are chronic in nature and that she requires OBGYN follow up and further evaluation/treatment. I discussed referring her to a different OBGYN today to "start fresh" if she feels that she is not getting appropriate eval at her current OBGYN, but she declined. We will draw for CBC, CMP, and CRP today to further evaluate her symptoms. I recommended that she schedule an appointment with her OBGYN to review labwork and for further eval. Pt voiced understanding and agrees with the plan. - Differential Dx/Diagnosis Provider Diagnosis: Chronic pelvic pain in female Discharge - Sign-Out/Discharge Documenting (check all that apply): Patient Departure All imaging exams completed and their final reports reviewed: Yes - Discharge Plan Condition: Stable Disposition: HOME Patient Education Materials: Pelvic Pain in Women (ED) Referrals: No Primary Care Phys,NOPCP [Primary Care Provider] - Additional Instructions: If you develop a fever, shortness of breath, chest pain, new or worsening symptoms - please call your PCP or go to the ED immediately. Your ultrasound today showed a LEFT ovarian cyst that is slightly larger than it was in November 2017 (2.1cm). -- I do not expect this is the cause of your pelvic pain. We have drawn for labwork to further evaluate your symptoms. I recommend that you schedule a follow up appointment with your OBGYN to review lab results and for further evaluation and treatment of your chronic pelvic pain. - Billing Disposition and Condition Condition: STABLE Disposition: Home
[2019-03-22 13:12] LABS: Hematocrit 41 % (35-47); Hemoglobin 13.8 g/dL (12.0-16.0); Mean Corpuscular HGB Conc 33 g/dL (31-36); Mean Corpuscular Hemoglobin 28 pg (27-31); Mean Corpuscular Volume 84 fL (80-97); Mean Platelet Volume 9.6 fL (7.4-10.4); Platelet Count 322 10^3/uL (150-450); Red Blood Count 4.93 10^6 /uL (3.70-4.87); Red Cell Distribution Width 15 % (10-15); White Blood Count 7.5 10^3/uL (3.5-10.8)
[2019-03-22 13:22] LABS: ALT 10 U/L (7-52); AST 12 U/L (13-39); Albumin 4.6 g/dL (3.2-5.2); Albumin/Globulin Ratio 1.6 (1-3); Alkaline Phosphatase 63 U/L (34-104); Anion Gap 9 mmol/L (2-11); BUN/Creatinine Ratio 13.3 (8-20); Blood Urea Nitrogen 8 mg/dL (6-24); C Reactive Protein < 1.00 mg/L (<8.01); CO2 Carbon Dioxide 22 mmol/L (22-32); Calcium 10.3 mg/dL (8.6-10.3); Chloride 107 mmol/L (101-111); EGFR African American 145.1 (>60); EGFR Non-African American 119.9 (>60); Globulin 2.8 g/dL (2-4); Glucose 88 mg/dL (70-100); Potassium 3.9 mmol/L (3.5-5.0); Sodium 138 mmol/L (135-145); Total Protein 7.4 g/dL (6.4-8.9)
[2019-03-22 14:18] LABS: ABS Basophils 0.1 10^3/ul (0-0.2); ABS Eosinophils 0.1 10^3/ul (0-0.6); ABS Lymphocytes 1.3 10^3/ul (1.0-4.8); ABS Monocytes 0.5 10^3/ul (0-0.8); ABS Neutrophils 5.6 10^3/ul (1.5-7.7); Eosinophil % 0.8 %; Lymphocyte % 17.7 %
== END 2019-03-21 18:05 | disposition home or self-care (01) ==
LOC: UCEAST 16:26
DX: R10.2 Pelvic and perineal pain (principal); R10.9 Unspecified abdominal pain; R11.0 Nausea; G89.29 Other chronic pain; G43.909 Migraine, unspecified, not intractable, without status migrainosus; Z79.899 Other long term (current) drug therapy
CPT/HCPCS: 36415; 76830; 80053; 81003; 84702; 85025; 86140; 87077; 87086; 99211; G0463

== ENCOUNTER 2019-04-14 16:17 | Emergency (ER) | payer OTHER ==
--- OUTSIDE RECORDS SUMMARY | 2019-04-14 16:26 | XMS REPORT | Continuity of Care Document ---
:1990 External Reference #:[id number] Author Name Nicol Wong Care Team Providers Name Role Phone Pending Sale To [facility] Primary Care Physician Unavailable Payers Date Identification Numbers Payment Provider Subscriber Policy Number: [id number] [employer] Student [employer] Thuy Lema PayID: [id number] [address] [place] [address] Problems Active Problems Provider Date Multiple joint [...] Unknown Never Smoked Cigarettes Smoking Status Reviewed: 04/13/19 Never Smoked Cigarettes ETOH Use Denies alcohol use Tobacco Use Start: Unknown Patient has never smoked Exercise Type/Frequency Exercises regularly Allergies, Adverse Reactions, Alerts Description No Known Drug Allergies Medications Active Medications SIG Qnty Indications Ordering Provider Date Amoxicillin Take one tab by 21caps Sasha Archibald, N.P. 04/08/2019 500mg mouth three Capsules times daily x 7 days Diflucan Take 3 tabs 9tabs Kike CerdaPRachna 04/08/2019 50mg Tablets daily every 3-4 days x 3 total doses Levothyroxine Sodium Take one by Sasha Archibald N.P. 04/04/2019 mouth daily 100mcg Tablets Clobetasol Propionate apply once 30gm Sasha Archibald N.P. 04/04/2019 nightly 0.05% Ointment Plaquenil Take one by 60tabs Asad Strauss, 03/09/2019 200mg Tablets mouth every M.D. other day for 2 week then 1 tab by mouth every day Topiramate take 1 tablet by 60tabs R51 Hemant Short, 02/08/2019 100mg Tablets mouth every M.D. morning and 1 tab at night Naratriptan HCL take one tab by 9tabs Hemant Short, 02/08/2019 2.5mg mouth twice a M.D. Tablets day as needed for severe migraines, max 2 days/week Womens Daily two pills daily, Unknown Formula/Folic one at Acid/Calcium/Iron breakfast, one at dinner Tablets Magnesium take one Unknown 500mg Tablets capsule/tablet daily by mouth Cevimeline HCL 1 cap three Unknown 30mg times a day Capsules Bupropion HCL take 1 tablet by Unknown 100mg mouth once daily Tablets History Medications Lorazepam take 1 tab [...] [place] 12/22/2018 - 10[place] 02/15/2019 Tablets bedtime for 7 days and then discontinue. Xanax Take 1 or 2 up 2tabs Asad Strauss, 12/16/2018 - 0.25mg Tablets to 20 minutes M.D. 12/21/2018 prior the MRI as needed for [...] 02/12/2015 Naproxen 1 by mouth every 719.44 Jonnathan Chua, 08/04/2014 - 500mg Tablets 12 hours M.D. 02/12/[address] 1 by mouth twice 60tabs 719.44 Jonnathan Chua, 07/31/2014 - 500mg Tablets a day M.D. 08/04/2014 Indomethacin Scooby, - 50mg [facility], [facility] 01/04/2019 Capsules Cyclobenzaprine HCL Scooby, - 5mg [facility], [facility] 01/04/2019 Tablets Indomethacin 1 cap by mouth [...] mouth Unknown - 5mcg bid 10/14/2018 Tablets Synthroid 1 by mouth every Unknown - 125mcg Tablets day 04/04/2019 Vitamin D 1 tab each day Unknown - (Cholecalciferol) by mouth 10/14/2018 Tablets Vitamin B-12 1 by mouth every Unknown - 1000mcg day 10/14/2018 Tablets Multivitamins 1 by mouth every Unknown - Capsules day 10/14/2018 Probiotic 1 by mouth every Unknown - Capsules day 10/14/2018 Synthroid 1 by mouth every 90tabs Unknown - 50mcg Tablets day 02/12/2015 Vital Signs Date Vital Result Comment 04/13/2019 1:38pm Height 64.25 inches 5'4.25" Weight 124.00 lb Heart Rate 102 /min BP Systolic 126 mmHg BP Diastolic 86 mmHg O2 % BldC Oximetry 99 % BMI (Body Mass Index) 21.1 kg/m2 04/07/2019 4:12pm Height 64.25 inches 5'4.25" Weight 125.00 lb Heart Rate 104 /min BP Systolic Sitting 121 mmHg Lue BP Diastolic Sitting 71 mmHg Lue Respiratory Rate 16 /min O2 % BldC Oximetry 99 % room air BMI (Body Mass Index) 21.3 kg/m2 04/05/2019 11:05am Height 64.25 inches 5'4.25" Weight 123.12 lb Heart Rate 96 /min BP Systolic Sitting 110 mmHg BP Diastolic Sitting 60 mmHg Respiratory Rate 14 /min Body Temperature 99.0 F BMI (Body Mass Index) 21.0 kg/m2 04/04/2019 9:46am Height 64.25 inches 5'4.25" Weight 124.00 lb Heart Rate 90 /min BP Systolic 118 mmHg BP Diastolic 85 mmHg O2 % BldC Oximetry 100 % BMI (Body Mass Index) 21.1 kg/m2 03/17/2019 3:28pm Height 64.25 inches 5'4.25" Weight [...] Test Result H/L Range Note Laboratory test 04/04/2019 [facility] Culture Genital & SEE RESULT [address] [place] [address] [phone] Laboratory test 03/17/2019 [facility] Gardnerella/Yeast SEE RESULT [address] : Vaginal Dna BELOW [place], [place] [id number] [phone] 1 SEE RESULT BELOW Name: ANILATHUY URIBE : [address]: Sasha Archibald NP Acct: [id number] Unit: [id number] AGE: 28 Location: [facility] Re04/04/19 SEX: F Status: REG REF SPEC: [id number] RODRÍGUEZ: 04/04/19-[address]: Sasha Archibald SPEECH ASSISTANT REQ: [id number] RECD: 04/04/19-1350 STATUS: COMP _ SOURCE: BRAYDEN SPDESC: ORDERED: Genital Culture COMMENTS: [id number] Procedure Result Reported Site Genital Culture Final 04/06/19- 0808 ML Organism 1 STREP GROUP B Quantity 3+ Organism 2 NORMAL STEVEN Quantity 3+ Routine genital cultures do not include selective agar for Neisseria gonorrhoeae. Molecular testing offers better test sensitivity and therefore is the preferred test methodology for identifying this organism. Susceptibility testing of penicillins and other B-lactams approved by FDA for treatment of Streptococcus pyogenes (Group A Strep) and Streptococcus agalactiae (Group B Strep) is not necessary for clinical purposes and need not be done routinely, since as with vancomycin, resistant strains have not been recognized. (CLSI X930-K13;p.66) Positive isolates will be saved for one week. Please call the Microbiology Laboratory if further susceptibility testing is needed. * ML - Main Lab . END OF REPORT DEPARTMENT OF PATHOLOGY, [address] [place] [address] Flakito Moon M.D. Director [facility] # [id number] 2 SEE RESULT BELOW Name: THUY LEMA : [address]: Sasha Archibald NP Acct: [id number] Unit: [id number] AGE: 28 Location: [facility] Re03/17/19 SEX: F Status: REG REF SPEC: [id number] RODRÍGUEZ: 03/17/19-[address]: Sasha Archibald SPEECH ASSISTANT REQ: [id number] RECD: 03/17/19051 STATUS: COMP _ SOURCE: VAGINAL SPDESC: ORDERED: Lasha,Yeast DNA COMMENTS: [id number] Would you like to order Trichomonas Vaginalis testing? No Procedure Result Reported Site Gardnerella/Yeast: Vaginal DNA Final 03/18/19- 1424 ML Organism 1 Negative Gardnerella Organism 2 Negative Muriel The presence of G. vaginalis, although suggestive, is not diagnostic for bacterial vaginosis. Results should be interpreted in conjuction with other clinical and laboratory data available. Women with vaginal discharge should be evaluated for risk factors of cervicitis and pelvic inflammatory disease, toxic shock syndrome (S.aureus), and if present, evaluated for organisms not included in this assay such as N. gonorrhoeae, C. trachomatis, Mobiluncus, Mycoplasma and/or Prevotella. Mixed infections may occur. The performance of this test on patient specimens collected during or immediately after antimicrobial therapy is unknown. The presence or absence of Muriel species, or G. vaginalis cannot be used as a test for therapeutic success or failure. * ML - Main Lab . END OF REPORT DEPARTMENT OF PATHOLOGY, [address] [place] [address] Flakito Moon M.D. Director [facility] # [id number] Procedures Date Code Description Status 04/07/2019 12160 Colposcopy Of The Vulva Completed Encounters Type Date Location Provider Dx Diagnosis Office Visit 04/07/2019 [facility] Sasha Archibald N.P. 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 L29.2 Pruritus vulvae F41.8 Other specified anxiety disorders Office Visit 03/17/2019 3:00p [facility] Sasha Archibald, R10.2 Pelvic and [facility] N.P. perineal pain L29.2 Pruritus vulvae Office Visit 03/09/2019 2:40p Rheumatology Asad M35.9 [facility]ay Strauss M.D. involvement of connective tissue, unspecified Z79.899 Other drug enforcement agent (current) drug therapy R51 Headache R68.2 Dry mouth, unspecified Office Visit 02/17/2019 9:00a [facility] Sasha Archibald N.P. L29.2 Pruritus vulvae [facility] R10.2 Pelvic and perineal pain M79.7 Fibromyalgia R53.82 Chronic fatigue, unspecified Office Visit 02/08/2019 [facility] Jefferson Nugent, G43.019 Migraine w/ o 11:00a [facility] SPEECH ASSISTANT aura, intractable, without status migrainosus Office Visit 01/05/2019 [facility] Jefferson Nugent, R51 Headache 11:30a Clinic SPEECH ASSISTANT M35.9 Systemic involvement of connective tissue, unspecified R20.0 Anesthesia of skin E06.3 Autoimmune thyroiditis Office Visit 12/29/2018 4:00p Rheumatology Asad [email or web address] [facility] Of Shay Strauss M.D. involvement of connective tissue, unspecified I73.00 Raynaud's syndrome without gangrene R51 Headache Office Visit 12/22/2018 8:30a [facility] Hemant Hollins G44.52 New daily Services Of Shay Short M.D. persistent headache (NDPH) M54.2 Cervicalgia I73.00 Raynaud's syndrome without gangrene M35.9 Systemic involvement of connective tissue, unspecified Office Visit 12/07/2018 Rheumatology Asad G43.001 Migraine w/o aura, 4:00p Services Of Shay Strauss M.D. not intractable, with status migrainosus M35.9 Systemic involvement of connective tissue, unspecified Z79.899 Other drug enforcement agent (current) drug therapy I73.00 Raynaud's syndrome without gangrene Office Visit 11/25/2018 1:40p Rheumatology Asad M35.9 [facility] Shay Strauss M.D. involvement of connective tissue, unspecified Z79.899 Other drug enforcement agent (current) drug therapy I73.00 Raynaud's syndrome without gangrene K11.20 Sialoadenitis, unspecified Office Visit 10/14/2018 9:20a Rheumatology Asad M35.9 [facility] Of Shay Strauss M.D. involvement of connective tissue, unspecified Z79.899 Other detention (current) drug therapy I73.00 Raynaud's syndrome without gangrene E06.9 Thyroiditis, unspecified Office Visit 03/13/2016 8:40a Rheumatology Services Migel Aleman.1 Myalgia Of Shay Birch.DRachna M54.2 Cervicalgia R76.0 Raised antibody titer Office Visit 01/08/2016 3:20p Rheumatology Services Migel Aleman.1 Myalgia Of Stamp Collector M.D. M25.50 Pain in unspecified joint M79.643 Pain in unspecified hand R20.8 Other disturbances of skin sensation M54.2 Cervicalgia L30.8 Other specified dermatitis M06.4 Inflammatory polyarthropathy Office Visit 02/13/2015 [facility] Nathalia Zavala 782.0 Skin Sensation 9:00a Services Of Shay Mirza M.D. Disturbance Office Visit 09/26/2014 Rheumatology Jonnathan Chua, 729.1 Myalgia & 11:20a Services Of Shay Grullon Myositis Unspec 714.0 Rheumatoid Arthritis Office Visit 07/31/2014 1:00p Rheumatology Jonnathan Chua, 719.49 Pain Joint [facility] Mitchel Multiple Sites 780.71 Chronic Fatigue Syndrome 729.1 Myalgia & Myositis Unspec 719.44 Pain Joint Hand Plan of Treatment Future Appointment(s):04/25/2019 10:00 am - Jefferson Nugent NP at [facility]04/26/2019 11:30 am - Scott Myers M.D. at [facility]23/12/2019 10:40 am - Sasha Archibald N.P. at [facility]05/04/2019 9:40 am - Asad Strauss M.D. at [facility]
--- OUTSIDE RECORDS SUMMARY | 2019-04-14 16:27 | XMS REPORT | Continuity of Care Document ---
:1990 External Reference #:[id number] Author Name Josephine House Care Team Providers Name Role Phone [facility] Primary Care Physician Unavailable Payers Date Identification Numbers Payment Provider Subscriber Policy Number: [id number] [employer] Student [employer] Thuy Aguilera PayID: [id number] [address] [place] [address] Problems Active Problems Provider Date Multiple joint [...] Unknown Never Smoked Cigarettes Smoking Status Reviewed: 04/05/19 Never Smoked Cigarettes ETOH Use Denies alcohol use Tobacco Use Start: Unknown Patient has never smoked Exercise Type/Frequency Exercises regularly Allergies, Adverse Reactions, Alerts Description No Known Drug Allergies Medications Active Medications SIG Qnty Indications Ordering Provider Date Levothyroxine Sodium Take one by Sasha Archibald, N.P. 04/04/2019 mouth daily 100mcg Tablets Clobetasol Propionate apply once 30gm Sasha Archibald, N.P. 04/04/2019 nightly 0.05% Ointment Plaquenil Take [...] needed for severe migraines, max 2 days/week Bupropion HCL take 1 tablet by Unknown 100mg mouth once daily Tablets Cevimeline HCL 1 cap three Unknown 30mg times a day Capsules Magnesium take one Unknown 500mg Tablets capsule/tablet daily by mouth Womens Daily two pills daily, Unknown Formula/Folic one at Acid/Calcium/Iron breakfast, one at dinner Tablets History Medications Lorazepam take 1 tab by 2tatay Hollins 01/13/2019 - 0.5mg Tablets mouth one hour Mitchel Short 02/07/2019 prior to the procedure and second tab 30 minutes to the procedure if needed. mdd 2 Lamictal 1 by mouth every 30tabs Hemant Hollins 01/05/2019 - 25mg Tablets day Mitchel Short 02/07/2019 Topiramate take 4 tabs 120tabs Paul1 Hemant Hollins 01/05/2019 - 25mg Tablets daily [...] anxiety Medrol take as directed 21units Asad Diasr, 12/07/2018 - 4mg TBPK until finished M.D. 12/21/2018 as a medrol dose pack Amlodipine Besylate take one 90tabs I73.00 Asad Strauss, 11/25/2018 - 2.5mg capsule/tablet M.D. 12/29/2018 Tablets daily by mouth Plaquenil take 2 by mouth 180tabs Asad Daigledor, 10/14/2018 - 200mg Tablets daily ongoing M.D. [...] Naproxen 1 by mouth every 719.44 Jonnathan Harshil, 08/04/2014 - 500mg Tablets 12 hours M.D. 02/12/2015 Naproxen 1 by mouth twice 60tabs 719.44 Jonnathan Harshil, 07/31/2014 - 500mg Tablets a day M.D. 08/04/2014 Indomethacin Scooby, - 50mg [facility] 01/04/2019 Capsules Cyclobenzaprine HCL Scooby, - 5mg Umu, [facility] 01/04/2019 Tablets Indomethacin 1 cap by [...] 02/12/2015 Vital Signs Date Vital Result Comment 04/05/2019 11:05am Height 64.25 inches 5'4.25" Weight [...] Result H/L Range Note Laboratory test 04/04/2019 [facility] Culture Genital & <pending > finding [address] [place] [address] [phone] Laboratory test 03/17/2019 [facility] Gardnerella/Yeast SEE RESULT [address] : [place] [address] [phone] 1 SEE RESULT BELOW Name: THUY AGUILERA : [address]: Sasha Archibald POOLROOM/POOLHALL MANAGER Acct: [id number] Unit: [id number] AGE: 28 Location: [facility] Re03/17/19 SEX: F Status: REG REF SPEC: [id number] RODRÍGUEZ: 03/17/19-1599 [facility] [address]: Sasha Archibald POOLROOM/POOLHALL MANAGER REQ: [id number] RECD: 03/17/19 STATUS: COMP _ SOURCE: VAGINAL SPDESC: ORDERED: Lasha,Yeast DNA COMMENTS: [id number] Would you like to order Trichomonas Vaginalis [...] . END OF REPORT DEPARTMENT OF PATHOLOGY, [address] [place] [address] Flakito Moon M.D. Director [facility] # [id number] Encounters Type Date Location Provider Dx Diagnosis Office Visit 03/17/2019 [facility] Sasha Archibald N.P. R10.2 Pelvic and 3:00p [facility] perineal pain L29.2 Pruritus vulvae Office Visit 03/09/2019 2:40p Rheumatology Asad M35.9 [facility] Strauss M.D. involvement of connective tissue, unspecified Z79.899 Other intermediate (current) drug therapy R51 Headache R68.2 Dry mouth, unspecified Office Visit 02/17/2019 9:00a [facility] Sasha Archibald N.P. L29.2 Pruritus vulvae [facility] R10.2 Pelvic and perineal pain M79.7 Fibromyalgia R53.82 Chronic fatigue, unspecified Office Visit 02/08/2019 [facility] Jefferson Nugent, G43.019 Migraine w/ o 11:00a [facility] POOLROOM/POOLHALL MANAGER aura, intractable, without status migrainosus Office Visit 01/05/2019 [facility] Nugent, R51 Headache 11:30a Clinic POOLROOM/POOLHALL MANAGER M35.9 Systemic involvement of connective tissue, unspecified R20.0 Anesthesia of skin E06.3 Autoimmune thyroiditis Office Visit 12/29/2018 4:00p Rheumatology Asad M35.9 [facility] Strauss M.D. involvement of connective tissue, unspecified I73.00 Raynaud's syndrome without gangrene R51 Headache Office Visit 12/22/2018 8:30a [facility] Hemant Hollins G44.52 New daily Services [facility] Short M.D. persistent headache (NDPH) M54.2 Cervicalgia I73.00 Raynaud's syndrome without gangrene M35.9 Systemic involvement of connective tissue, unspecified Office Visit 12/07/2018 [facility] Asad G43.001 Migraine w/o aura, 4:00p [facility] Strauss M.D. not intractable, with status migrainosus M35.9 Systemic involvement of connective tissue, unspecified Z79.899 Other laborer marine terminal (current) drug therapy I73.00 Raynaud's syndrome without gangrene Office Visit 11/25/2018 1:40p Rheumatology Asad M35.9 [facility] Strauss M.D. involvement of connective tissue, unspecified Z79.899 Other laborer marine terminal (current) drug therapy I73.00 Raynaud's syndrome without gangrene K11.20 Sialoadenitis, unspecified Office Visit 10/14/2018 9:20a Rheumatology Asad M35.9 [facility] Strauss M.D. involvement of connective tissue, unspecified Z79.899 Other intermediate (current) drug therapy I73.00 Raynaud's syndrome without gangrene E06.9 Thyroiditis, unspecified Office Visit 03/13/2016 8:40a Rheumatology Services Migel Aleman.1 Myalgia Of [facility] Birch.Selin M54.2 Cervicalgia R76.0 Raised antibody titer Office Visit 01/08/2016 3:20p Rheumatology Services Migel Aleman.1 Myalgia Of [facility] Birch.Selin M25.50 Pain in unspecified joint M79.643 Pain in unspecified hand R20.8 Other disturbances of skin sensation M54.2 Cervicalgia L30.8 Other specified dermatitis M06.4 Inflammatory polyarthropathy Office Visit 02/13/2015 [facility] Tika Zavala 782.0 Skin Sensation 9:00a [...] Pain Joint Hand Plan of Treatment Future Appointment(s):04/26/2019 11:30 am - Scott Myers M.D. at [facility] Ttlzvwbt61/12/2019 10:40 am - Sasha Archibald N.P. at [facility]05/04/2019 9:40 am - Asad Strauss M.D. at [facility]04/12/2019 1:30 pm - Jefferson Nugent NP at [facility]04/05/2019 - Scott Myers M.D.R10.2 Pelvic and perineal painComments:I think chronic vulvovaginitis due to Enterobius is unlikely
--- OUTSIDE RECORDS SUMMARY | 2019-04-14 16:27 | XMS REPORT | Continuity of Care Document ---
:1990 External Reference #:[id number] Author Name Niya Chapman Care Team Providers Name Role Phone [facility] Primary Care Physician Unavailable Payers Date Identification Numbers Payment Provider Subscriber Policy Number: [id number] [employer] Student [employer] Thuy Aguilera PayID: [id number] [address] [place] [address] Problems Active Problems Provider Date Multiple joint [...] Unknown Never Smoked Cigarettes Smoking Status Reviewed: 04/04/19 Never Smoked Cigarettes ETOH Use Denies alcohol [...] M.D. 08/04/2014 Indomethacin Scooby, - 50mg [facility] 01/04/2019 Capsules Cyclobenzaprine HCL Scooby, - 5mg Umu, [facility] 01/04/2019 Tablets Indomethacin 1 cap by [...] 02/12/2015 Vital Signs Date Vital Result Comment 04/04/2019 9:46am Height 64.25 inches 5'4.25" Weight [...] Result H/L Range Note Laboratory test 03/17/2019 [facility] Arlene/Ye SEE RESULT [address] ast: [place] [address] Dna [phone] 1 SEE RESULT BELOW Name: THUY AGUILERA : [address]: Sasha Archibald NP Acct: [id number] Unit: [id number] AGE: 28 Location: [facility] Re03/17/19 SEX: F Status: REG REF SPEC: [id number] RODRÍGUEZ: 03/17/19-[address]: Sasha Archibald NP REQ: [id number] RECD: 03/17/19 STATUS: COMP _ SOURCE: VAGINAL SPDESC: ORDERED: Lasha,Yeast DNA COMMENTS: [id number] Would you like to order Trichomonas Vaginalis [...] . END OF REPORT DEPARTMENT OF PATHOLOGY, [address] [place] [address] Flakito Moon M.D. Director [facility] # [id number] Encounters Type Date Location Provider Dx Diagnosis Office Visit 03/17/2019 [facility] Sasha Archibald N.P. R10.2 Pelvic and 3:00p [facility] perineal pain L29.2 Pruritus vulvae Office Visit 03/09/2019 2:40p Rheumatology Asad M35.9 [facility] Strauss M.D. involvement of connective tissue, unspecified Z79.899 Other compliance monitor (current) drug therapy R51 Headache R68.2 Dry mouth, unspecified Office Visit 02/17/2019 9:00a [facility] Sasha Archibald N.P. L29.2 Pruritus vulvae [facility] R10.2 Pelvic and perineal pain M79.7 Fibromyalgia R53.82 Chronic fatigue, unspecified Office Visit 02/08/2019 [facility] Jefferson Nugent, G43.019 Migraine w/ o 11:00a [facility] REMEDIATION CONSULTANT aura, intractable, without status migrainosus Office Visit 01/05/2019 [facility] Nugent, R51 Headache 11:30a Clinic REMEDIATION CONSULTANT M35.9 Systemic involvement of connective tissue, unspecified R20.0 Anesthesia of skin E06.3 Autoimmune thyroiditis Office Visit 12/29/2018 4:00p Rheumatology Asad M35.9 [facility] Strauss M.D. involvement of connective tissue, unspecified I73.00 Raynaud's syndrome without gangrene R51 Headache Office Visit 12/22/2018 8:30a [facility] Hemant Hollins G44.52 New daily Services [facility] Short M.D. persistent headache (NDPH) M54.2 Cervicalgia I73.00 Raynaud's syndrome without gangrene M35.9 Systemic involvement of connective tissue, unspecified Office Visit 12/07/2018 Rheumatology Asad G43.001 Migraine w/o aura, 4:00p [facility] Strauss M.D. not intractable, with status migrainosus M35.9 Systemic involvement of connective tissue, unspecified Z79.899 Other custodial (current) drug therapy I73.00 Raynaud's syndrome without gangrene Office Visit 11/25/2018 1:40p Rheumatology Asad M35.9 [facility] Strauss M.D. involvement of connective tissue, unspecified Z79.899 Other custodial (current) drug therapy I73.00 Raynaud's syndrome without gangrene K11.20 Sialoadenitis, unspecified Office Visit 10/14/2018 9:20a Rheumatology Asad M35.9 [facility] Sh[facility] Strauss M.D. involvement of connective tissue, unspecified Z79.899 Other compliance monitor (current) drug therapy I73.00 Raynaud's syndrome without gangrene E06.9 Thyroiditis, unspecified Office Visit 03/13/2016 8:40a Rheumatology Services Migel Aleman.1 Myalgia Of Shay Grullon M54.2 Cervicalgia R76.0 Raised antibody titer Office Visit 01/08/2016 3:20p Rheumatology Services Eyal Aleman79.1 Myalgia Of [facility] Birch.Selin M25.50 Pain in unspecified joint M79.643 Pain in unspecified hand R20.8 Other disturbances of skin sensation M54.2 Cervicalgia L30.8 Other specified dermatitis M06.4 Inflammatory polyarthropathy Office Visit 02/13/2015 [facility] Tika Zavala 782.0 Skin Sensation [...] Pain Joint Hand Plan of Treatment Future Appointment(s):05/02/2019 10:40 am - [facility]05/04/2019 9:40 am - Asad Strauss M.D. at [facility]04/12/2019 1:30 pm - Jefferson Nugent NP at [facility]04/04/2019 - Sasha Archibald, N.P.R10.2 Pelvic and perineal painComments:Sending bacterial swab today.Pinworm testing: plan to ask GI doctor today, migrate vaginally
[2019-04-14 17:07] VITALS: BP 111/76
--- NOTE | 2019-04-14 17:17 | UC ---
General HPI - HPI Summary HPI Summary: 28 yo female presents with tingling sensation throughout body. She had an MRI with gadolinium earlier today around 1600 and as soon as the contrast was injected she felt a warm and tingling in her entire body. Has persisted since ( 1.5 hours). No hx of allergies to any medications. No swelling, SOB, chest pain , or difficulty breathing. She has urinated twice since receiving contrast - clear yellow in color. - History of Current Complaint Chief Complaint: UCGeneralIllness Stated Complaint: POSS REACTION TO CONTRAST DYE Time Seen by Provider: 04/14/19 17:15 Hx Obtained From: Patient Hx Last Menstrual Period: 04/13/19 Onset/Duration: Sudden Onset Current Severity: None Pain Intensity: 0 - Allergy/Home Medications Allergies/Adverse Reactions: Allergies Allergy/AdvReac Type Severity Reaction Status Date / Time No Known Allergies Allergy Verified 04/14/19 17:07 Home Medications: Home Medications Amoxicillin PO (*) [Amoxicillin 500 MG CAP*] 500 mg PO TID 04/14/19 [History Confirmed 04/14/19] Fluconazole 100 MG TAB* [Diflucan 100 MG TAB*] PO EVERY OTHER DAY 04/14/19 [ History] Levothyroxine TAB* [Synthroid TAB*] 100 mcg PO DAILY 04/14/19 [History Confirmed 04/14/19] PMH/Surg Hx/FS Hx/Imm Hx - Additional Past Medical History Additional PMH: Headaches Endocrine History: Hypothyroidism Psychological History: Anxiety, Depression - Surgical History Surgical History: Yes Surgery Procedure, Year, and Place: TONSILLECTOMY - Family History Known Family History: Positive: Other Negative: Cardiac Disease, Hypertension, Diabetes Family History: ovarian cysts - Social History Lives: With Family Alcohol Use: None Substance Use Type: None Smoking Status (MU): Never Smoked Tobacco Review of Systems All Other Systems Reviewed And Are Negative: Yes Constitutional: Positive: Other - Tingling/warmth sensation entire body Skin: Positive: Negative Eyes: Positive: Negative ENT: Positive: Negative Respiratory: Positive: Negative Cardiovascular: Positive: Negative Gastrointestinal: Positive: Negative Genitourinary: Positive: Negative Motor: Positive: Negative Neurovascular: Positive: Negative Musculoskeletal: Positive: Negative Neurological: Positive: Negative Psychological: Positive: Negative Physical Exam - Summary Physical Exam Summary: GENERAL: NAD. WDWN. No pain distress. SKIN: No rashes, sores, lesions, or open wounds. HEENT: Head: AT/NC Throat: Posterior oropharynx without exudates, erythema, or tonsillar enlargement. Uvula midline. Airway patent and without edema. NECK: Supple. Nontender. No lymphadenopathy. CHEST: CTAB. No r/r/w. No accessory muscle use. Breathing comfortably and in no distress. CV: RRR. Without m/r/g. Pulses intact. Cap refill <2seconds NEURO: Alert. PSYCH: Age appropriate behavior. Triage Information Reviewed: Yes Vital Signs: Initial Vital Signs Temp 98.5 F 04/14/19 17:04 Pulse 101 04/14/19 17:04 Resp 16 04/14/19 17:04 BP 111/76 04/14/19 17:04 Pulse Ox 100 04/14/19 17:04 Vital Signs Reviewed: Yes Course/Dx - Course Course Of Treatment: Suspect normal reaction to gadolinium/contrast as this is known to cause a warming sensation as it is being injected - there is some evidence this can persist for up to 24 hours. She has had no SOB, chest pain/palpitations, headaches, difficulty breathing, swelling, or rash since receiving the contrast 1.5 hours ago. Provided reassurance. Advised to call 911 or seek immediate medical attention if she develops any of the above. - Diagnoses Provider Diagnosis: Tingling Discharge - Sign-Out/Discharge Documenting (check all that apply): Patient Departure All imaging exams completed and their final reports reviewed: No Studies - Discharge Plan Condition: Stable Disposition: HOME Referrals: Umu Almodovar NP [Primary Care Provider] - Additional Instructions: The MRI you had today contained a dye called Gadolinium. Gadolinium may cause side effects in some people but these are usually mild and short lasting. Some of the more common side effects include injection site pain , nausea, vomiting, itching, rash, headache, and parasthesia (abnormal skin sensation, such as prickling, burning or tingling). These symptoms usually resolve within 24 hours. If you develop difficulty breathing, hives, swelling, pain, shortness of breath , or chest pain - please call 911 or go to the ER - Billing Disposition and Condition Condition: STABLE Disposition: Home - Attestation Statements Provider Attestation: Per institutional requirements, I have reviewed the chart, however, I was not consulted specifically or made aware of this patient by the midlevel provider. I did not personally evaluate, interact with , or disposition this patient.
== END 2019-04-14 17:42 | disposition home or self-care (01) ==
LOC: UCEAST 16:17
DX: R20.2 Paresthesia of skin (principal); E03.9 Hypothyroidism, unspecified; F41.9 Anxiety disorder, unspecified; F32.9 Major depressive disorder, single episode, unspecified
CPT/HCPCS: 99212; G0463